=== PATIENT | female | born 1960 | race Caucasian/White ===

== ENCOUNTER 2017-08-29 09:28 | Day surgery (SDC) | payer BC ==
[~2017-08-29 09:28] MED LIST: Buffered Lidocaine 0.9% SYRIN* 5 ML/SYR SYRINGE INTRADERM ONE; Dexamethasone IV* 4 MG/ML 1 ML (4 MG) IV SLOW PU ONE; Famotidine IV* 10 MG/ML 2 ML (20 mg) IV ONE
[2017-08-29] MEDS ORDERED: ceFAZolin 2 GM in 100 MLS NS (*) BAG IVPB ONE (10:48)
[2017-08-29] MEDS ORDERED: Dexamethasone IV* 4 MG/ML 1 ML (4 MG) ONE (10:48)
[2017-08-29] MEDS ORDERED: Famotidine IV* 10 MG/ML 2 ML (20 mg) ONE (10:48)
[2017-08-29] MEDS ORDERED: Bupivacaine 0.25% SDV* 30 ML ONE (12:21)
[2017-08-29] MEDS ORDERED: Lidocaine 2% PF * 5 ML VIAL ONE (12:23)
[2017-08-29] MEDS ORDERED: Midazolam* 1 MG/ML 5 ML VIAL (5 MG) ONE (12:23)
[2017-08-29] MEDS ORDERED: Propofol* 10 MG/ML 20 ML BTL IV PUSH ONE (12:23)
[2017-08-29] MEDS ORDERED: fentaNYL* 50 MCG/ML 2 ML VIAL (100 MCG VIAL) ONE ×2 (12:23→14:08)
[2017-08-29] MEDS ORDERED: Ketorolac INJ* 30 MG/ML 1 ML VIAL ONE (12:50)
[2017-08-29] MEDS ORDERED: Naloxone* 0.4 MG/ML 1 ML VIAL IV PRN ×2 (13:09→17:01)
[2017-08-29] MEDS ORDERED: HYDROcodone/ACETAMIN 5-325 MG* 1 TAB PO PRN (13:09)
[2017-08-29] MEDS ORDERED: PROCHLORPERAZINE INJ 5 MG/ML 2 ML VIAL IV PRN (13:09)
[2017-08-29] MEDS ORDERED: fentaNYL* 50 MCG/ML 2 ML VIAL (100 MCG VIAL) IV PRN (13:09)
[2017-08-29 15:31] VITALS: BP 114/79
[2017-08-29] MEDS ORDERED: Ondansetron INJ* 2 MG/ML VIAL IV PRN (17:01)
--- NOTE | 2017-08-31 01:44 | OP ---
DATE OF OPERATION: 08/29/17 - [facility] DATE OF : 64 SURGEON: Ramesh Trores MD. PSYCHIATRIC NURSE PRACTITIONER: GIOVANNY Monahan. An assistant administrator was needed for the entirety of the procedure to aid in positioning of the arm, retraction. ANESTHESIOLOGIST: Dr. Mosley. ANESTHESIA: General. PRE-OP DIAGNOSES: 1. Right thumb carpometacarpal degenerative joint disease, stage 4. 2. Right thumb metacarpophalangeal joint hyperextension of about 40 degrees. POST-OP DIAGNOSES: 1. Right thumb carpometacarpal degenerative joint disease, stage 4. 2. Right thumb metacarpophalangeal joint hyperextension of 40 degrees. OPERATIVE PROCEDURES: 1. Right thumb carpometacarpal arthroplasty with distally based split flexor carpi radialis tendon transfer for thumb suspension. 2. Right thumb metacarpophalangeal joint volar capsular invocation. INDICATIONS: Ms. Calloway has had a prolonged history of DJD at the carpometacarpal joint. This has progressed, was making it very difficult for her to perform duties of her job as well as do her activities of daily living. She understood the risks and benefits and wanted to proceed with surgery. ESTIMATED BLOOD LOSS: 2 mL. COMPLICATIONS: None. FINDINGS: As expected. She did have stage 4 arthritis with quite a bit of cartilage loss at the distal pole of scaphoid, at the scaphotrapezial joint, but the scaphotrapezoid joint was looking fine. DESCRIPTION OF PROCEDURE: Soco was seen in the preoperative holding area. The correct side, site, and procedure were identified. We came back to the operating room. The arm was prepped and draped in the usual fashion. A time- out was performed. I exsanguinated the arm. The Esmarch and the tourniquet was inflated to 250 mmHg. I then made a longitudinal incision over the dorsal radial aspect of the thumb base metacarpal towards the radial styloid of about 3 cm, dissection was carried down, subcutaneous tissue was released in line to preserve traversing dorsal sensory nerves. The radial artery was mobilized by ligating 1 perforating branch with some 4-0 silk ties. Venous plexus was cauterized. Subperiosteal and capsular flaps were raised and the soft tissues were released about the trapezium, this was excised in its entirety. I then made a drill hole from the dorsal radial aspect of the thumb metacarpal base exiting out the volar ulnar articular surface. This was done sequentially with larger drill bits. This wound was then irrigated out. The scaphotrapezoid joint was inspected and looked intact. I made a 1 cm transverse incision over the distal FCR tendon at the proximal flexion crease. The tendon sheath was released. The tendon was delivered out into the wound. The 15 blade and 25-gauge wire was tacked to the split. I then made 2 more proximal incisions, each transverse and about a cm, over the tendon about each incision, about 7 to 8 cm proximal than the other one. The sheath was released along the entirety of the tendon. I then passed the wire under the skin. Using a Nerieda clamp, this put the tendon longitudinally and released to the musculotendinous junction. Two 25-gauge wires were used to shuttle the split end of the tendon down into the thumb base wound. This was then brought up through the drill hole in the metacarpal base back around the intact rim of the FCR and tension was set and the tendon transfer was secured with 3-0 Ethibond suture holding all 3 limbs of the transfer with the first stitch and the last 2 stitches showing intact limb to intact length. The remainder of the tendon was rolled up into a ball and secured with 2-0 Ethibond suture and docked this in interposition between the base of the thumb metacarpal and the distal pole of the scaphoid. Everything was irrigated out again, the capsule was closed with 2-0 Ethibond suture. The skin was closed with 4-0 nylon suture. I then made a V-shaped incision over the metacarpophalangeal joint. Dissection was carried down. The nerves were preserved. The A1 keiry was released. The tendon was retracted radially. I then placed 2 [id number] sutures through the volar plate imbricating it so as to give a block to hyperextension. After the 2 stitches were placed, the MCP joint came out to just neutral, but not beyond neutral. I therefore irrigated out that wound. The tendon was intact in place, the digital nerves were inspected again and were intact. The skin was closed with 4-0 nylon suture. The wound was dressed with Xeroform, 4 x 4, and sterile Webril, and a thumb spica splint was placed, holding the MCP joint in 30 degrees of flexion and the first webspace open. The patient was then woken up and taken to recovery room in stable condition. [id number]/[facility] #: [id number] GERARDO
== END 2017-08-29 15:28 | disposition home or self-care (01) ==
LOC: OREAST 09:28
PROVIDERS: ATTEND Orthopaedic Surgery Hand Surgery
DX: M18.11 Unilateral primary osteoarthritis of first carpometacarpal joint, right hand (principal); M24.341 Pathological dislocation of right hand, not elsewhere classified; N28.1 Cyst of kidney, acquired
CPT/HCPCS: 88304; 88311; J1100; J1885; J2250; J2704; J3010

== ENCOUNTER → 2019-03-09 | Day surgery (SDC) | payer BC ==
[~2019-03-09] MED LIST changes: +Acetaminophen TAB* 325 MG PO PRN; -Buffered Lidocaine 0.9% SYRIN* 5 ML/SYR SYRINGE INTRADERM ONE; +Buffered Lidocaine 1% SYRIN* 1 ML/SYRINGE INTRADERM ONE; -Dexamethasone IV* 4 MG/ML 1 ML (4 MG) IV SLOW PU ONE; +Dexamethasone IV* 4 MG/ML 1 ML (4 MG) ONE; +DiMENhydriNATE IV* 50 MG/ML VIAL IV PUSH PRN; +DiMENhydriNATE IV* 50 MG/ML VIAL ONE; +Famotidine IV* 10 MG/ML 2 ML (20 mg) ONE; +HYDROmorphone INJ1* 1 MG/ML SYRINGE IV PRN; +Ketorolac INJ* 30 MG/ML 1 ML VIAL ONE; +Lactated Ringers 1000 ML Bag* 1,000 ML IV SCH; +Lidocaine 1% w EPI 1:100,000* MDV 20 ML VIAL ONE; +Lidocaine 2% PF * 5 ML VIAL ONE; +Midazolam* 1 MG/ML 5 ML VIAL (5 MG) ONE; +Naloxone* 0.4 MG/ML 1 ML VIAL IV PRN; +Ondansetron INJ* 2 MG/ML VIAL ONE; +Propofol* 10 MG/ML 20 ML BTL ONE; +Sodium Bicarbonate 8.4%* 50 ML SYRINGE ONE; +ceFAZolin 2 GM in NS PREMIX(*) 2 GM/100 ML BAG IVPB ONE; +fentaNYL* 50 MCG/ML 2 ML VIAL (100 MCG VIAL) ONE
[2019-03-09 12:18] VITALS: BP 136/81
--- NOTE | 2019-03-09 15:26 | OP ---
DATE OF OPERATION: 03/09/19 - [facility] DATE OF : 64 SURGEON: Ramesh Torres MD [employer] SUPERVISOR: GIOVANNY Monahan ANESTHESIOLOGIST: Dr. Loomis. ANESTHESIA: General. PRE-OP DIAGNOSIS: Left thumb stage III CMC arthritis. POST-OP DIAGNOSIS: Left thumb stage III CMC arthritis. OPERATIVE PROCEDURE: 1. Left thumb carpometacarpal arthroplasty with trapeziectomy. 2. Left distally based split flexor carpi radialis tendon transfer for thumb suspension and tendon interposition. INDICATIONS: Ms. Calloway has done well with surgery on the right. We had talked about treatment options including the risk of not having the same result on the left that she had on the right. She understands and she wishes to proceed. ESTIMATED BLOOD LOSS: 2 mL. COMPLICATIONS: None. FINDINGS: See above and below. DESCRIPTION OF PROCEDURE: Ms. Calloway was seen in the preoperative holding area. The correct site, side, and procedure were identified. We came back to the operating room where the arm was prepped and draped in the usual fashion and a time-out was performed. The arm was exsanguinated with the Esmarch and the tourniquet inflated to 250 mmHg. I made a 2 to 3 cm longitudinal incision over the dorsoradial aspect of the left thumb CMC joint. Dissection was carried down. The radial sensory nerve was prominent and preserved. The radial artery was dissected free and mobilized. I then made a capsulotomy and right subperiosteal flaps off the trapezium. I released the soft tissue all about the trapezium. The trapezium was then excised in its entirety with the rongeur, taking care to preserve the FCR tendon in the base. Once I had performed a nice clean trapeziectomy, I went ahead and raised the soft tissue off the dorsoradial aspect of the left thumb metacarpal base. Drill holes with sequentially larger drill bits were then used to make a drill hole from the dorsoradial aspect of the base, exiting out the volar and ulnar articular surface near the insertion of the FCR tendon. I inspected the scaphotrapezoid joint and looked fine. I then made a 1 cm incision over the distal FCR tendon just proximal to the wrist flexion crease. I went ahead and released the tendon sheath along the course of the tendon. I came about 7 or 8 cm proximal to that, made another 1 cm transverse incision, and then a 7 to 8 cm proximal to that incision, I made a third incision. The sheath was released along the course of the tendon. The tendon was brought up in the distal wound with a right angle and then split longitudinally. A 25-gauge wire was placed in the tendon splint. A Nereida clamp was then used to retrieve the wire under the skin and pulled back into the most proximal wound splitting the tendon and then releasing half of it at the musculo-tendinous junction. I placed a 3-0 Ethibond suture in the end of the tendon tail to prevent the tendon from fraying. Two 26-gauge wires were then used to suture shuttle the tendon down into the thumb base wound. I then used a 26-gauge wire to pass the free tendon tail up in through the bone tunnel after I completed the split all the way down to the base of the second metacarpal. The tendon was then woven back around the intact limb of the tendon and maximum tension was set as the tendon transfer was secured with multiple 3-0 Ethibond [id number] sutures, the first sewing all three limbs of the tendon transfer together, the last said sewing intact limb to intact limb. The remainder of the tendon was rolled up as a bone, secured with 3-0 Ethibond and then placed as an interposition between the base of the metacarpal and the scaphoid. The wound was irrigated out. The fascia was closed with 4-0 Vicryl suture. All the incisions were closed with 4-0 nylon. 0.25% plain Marcaine was infiltrated all about the operative area. She was placed in a thumb spica splint with the IP joint free and she was taken to the recovery room in stable condition. [id number]/[facility] #: [id number] [facility]
== END | disposition home or self-care (01) ==
LOC: OR 07:01
PROVIDERS: ATTEND Orthopaedic Surgery Hand Surgery
DX: M18.12 Unilateral primary osteoarthritis of first carpometacarpal joint, left hand (principal); Z87.891 Personal history of nicotine dependence; J30.89 Other allergic rhinitis; M19.90 Unspecified osteoarthritis, unspecified site; F41.9 Anxiety disorder, unspecified; N28.1 Cyst of kidney, acquired
CPT/HCPCS: 88304; 88311; J0690; J1100; J1240; J1885; J2250; J2405; J2704; J3010